=== PATIENT | male | born 1945 | race Caucasian/White ===

== ENCOUNTER 2018-05-30 09:25 | Emergency (ER) | payer MEDICARE ==
[~2018-05-30] VITALS: Ht 177.8 cm; Wt 77.2 kg
[2018-05-30] MEDS ORDERED: LIFI1DRO OP (09:43)
[2018-05-30 11:01] LABS: BASOPHILS # (AUTO) 0.03 x10^3/uL (0-0.1); BASOPHILS % (AUTO) 1 % (0-1); EOSINOPHILS # (AUTO) 0.05 x10^3/uL (0-0.4); EOSINOPHILS % (AUTO) 1 % (1-7); LYMPHOCYTES # (AUTO) 1.41 x10^3/uL (1-3.4); LYMPHOCYTES % (AUTO) 25 % (22-44); MD NO; MEAN CORPUSCULAR HEMOGLOBIN 30.8 pg (27.5-34.5); MEAN CORPUSCULAR HGB CONC 34.4 g/dL (33.2-36.2); MEAN CORPUSCULAR VOLUME 89.4 fL (81-97); MEAN PLATELET VOLUME 9.3 fL (7.4-10.4); MONOCYTES # (AUTO) 0.53 x10^3/uL (0.2-0.8); MONOCYTES % (AUTO) 9 % (2-9); NEUTROPHILS # (AUTO) 3.73 x10^3/uL (1.8-6.8); NEUTROPHILS % (AUTO) 65 % (42-75); PLATELET COUNT 170 x10^3/uL (130-400); RED BLOOD COUNT 5.39 x10^6/uL (4.38-5.82); RED CELL DISTRIBUTION WIDTH 12.8 % (9.4-14.8)
--- NOTE | 2018-05-30 11:02 | NUR ---
pt upright on gurney awake & comfortable, responds approp to staff, NAD, comfort measures provided, call light within reach.
[2018-05-30 11:11] LABS: ALBUMIN 3.9 g/dL (3.4-5.0); ANION GAP 5 mmol/L (5-15); CHLORIDE 113 mmol/L (98-107)
[2018-05-30 11:17] LABS: ALANINE AMINOTRANSFERASE 31 U/L (12-78); ALKALINE PHOSPHATASE 83 U/L (45-117); BILIRUBIN,TOTAL 0.3 mg/dL (0.2-1.0); CREATININE 1.44 mg/dL (0.7-1.3); TROPONIN I < 0.015 ng/mL (0.000-0.045)
--- NOTE | 2018-05-30 11:56 | NUR ---
Pt to be admitted to [facility], room 493-2. Report called to Christopher.
--- NOTE | 2018-05-30 12:03 | NUR ---
pt remains upright on gurney awake & comfortable, responds approp to staff, NAD, comfort measures provided, at BS, call light within reach.
[2018-05-30 13:01] VITALS: BP 108/77
--- NOTE | 2018-05-30 13:01 | NUR ---
pt upright on gurney awake & comfortable, responds approp to staff, NAD, comfort measures provided, at BS, call light within reach.
--- NOTE | 2018-05-30 14:13 | NUR ---
Patient given discharge instructions and they have confirmed that they understand the instructions. Patient ambulatory with steady gait.
== END 2018-05-30 14:14 | disposition home or self-care (01) ==
LOC: ED 10:44 → EDIP 11:29 → UNDOADMIN 11:29 → ED 14:14
DX: R55 Syncope and collapse (principal)
CPT/HCPCS: 36415; 71045; 80053; 83880; 84484; 85025; 93005; 99284